=== PATIENT | male | born 1960 | race Caucasian/White ===

== ENCOUNTER 2019-09-05 09:00 | Emergency (ER) | payer OTHER ==
[~2019-09-05] VITALS: Ht 182.9 cm; Wt 91.6 kg
[2019-09-05] MEDS ORDERED: AZITHROMYCIN500 MG (09:13)
[2019-09-05] MEDS ORDERED: ALBUTEROL1.25 MG/3 IH (12:18)
[2019-09-05] MEDS ORDERED: TUSNEL LIQUID178 ML PO (12:18)
[2019-09-05] MEDS ORDERED: MEDROLPACK PO (12:18)
[2019-09-05] MEDS ORDERED: CLARITIN10 M1 PO (12:18)
== END 2019-09-05 12:30 | disposition home or self-care (01) ==
LOC: ER 09:00 → EDBD 09:22 → ER 09:22
DX: B34.9 Viral infection, unspecified (principal)